=== PATIENT | male | born 2005 | race Two or more races ===

== ENCOUNTER 2025-01-15 11:07 | Emergency (ER) | payer MEDICAID, SELFPAY ==
[2025-01-15 11:31] VITALS: BP 121/84; PULSE 77; RESP 18; TEMP 36.9; O2SAT 96; BMI 25.1
--- NOTE | 2025-01-15 13:06 | XR_ITS ---
Examination: Abdomen sonogram, Limited Date and time of exam: January 15, 2025, 1341 hours INDICATION: Onset right upper abdominal pain beginning 2 days ago Technique: Real-time lawrence scale transabdominal sonographic images of the upper abdomen obtained. Findings: Contracted gallbladder, no gallstones, gallbladder wall 0.4 cm no edema Common bile duct 0.3 cm Pancreatic head 2.5 cm Liver 16.1 cm smooth contour no focal liver lesions Normal hepatopetal portal venous flow Patent IVC IMPRESSION: Repeat the gallbladder portion of the study with fasting
--- NOTE | 2025-01-15 13:06 | EKG_ITS ---
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
--- NOTE | 2025-01-15 13:07 | PD.EDABDPN ---
ED Abdominal Pain RME/HPI General Chief Complaint: Abdominal Pain Stated complaint: RUQ PAIN SINCE LAST NIGHT WITH NAUSEA Time seen by provider: 01/15/25 12:43 Arrival date/time: 01/15/25 11:07 19-year-old male patient with no past medical history, came in for evaluation regarding right upper quadrant pain. Onset of symptoms for the last 5 days, and has on and off right upper quadrant pain, described as dull ache, severity moderate. Patient denies any nausea no vomiting no diarrhea no. Patient no fever. Pain does not radiate. Denies any alcohol abuse. Denies any drug abuse. Denies any abdomen surgery. Family history of gallstone. Related Data Previous Rx's ?Medication ?Instructions ?Recorded famotidine 40 mg tablet (Pepcid) 40 mg PO BID #20 tabs 01/15/25 Allergies Allergy/AdvReac Type Severity Reaction Status Date / Time No Known Allergies Allergy Verified 01/15/25 11:09 Review of Systems Review of Systems Narrative Review of Systems: Review of system reviewed and within normal limits except mentioned in HPI ED Exam Narrative Physical exam: VITAL SIGNS: Reviewed. GENERAL APPEARANCE: Alert and interactive, follows commands, no acute distress, HEAD AND FACE: Non-traumatic. ENT: PERRL, pink conjunctivitis, eyelid no trauma, Mucous membrane moist. NECK: Supple, nontender, no nuchal rigidity. CHEST: No tenderness, no crepitus, no paradoxical movement, no retractions. LUNGS: Clear, well ventilated, symmetric, no rales, no wheezing, no ronchi, no stridor, good breath sounds bilaterally. HEART: Regular rate, regular rhythm, no murmur, no gallops. ABDOMEN: Soft, positive bowel sounds, nondistended, no guarding, right upper quadrant tenderness, no rebound, no masses, RECTAL: Deferred. GENITAL: Deferred. NEUROLOGICAL: Gross motor function intact sensory function intact, Appropriate for age. MUSCULOSKELETAL: low back nontender, full range of motion. EXTREMITIES: Nontender, full range of motion. SKIN: Color pink, dry, no rash, no lacerations, no abrasions, no contusions. LYMPHATICS: Deferred. Course Quality Measures none Orders Category Date Time Status EKG (ED ONLY) *Do not use* NOW Care 01/15/25 13:06 Completed EKG (ED Only) Stat Exams 01/15/25 13:06 Draft US gall bladder Stat Exams 01/15/25 13:06 Completed CBC Stat Lab 01/15/25 13:13 Completed Comprehensive Metabolic Panel Stat Lab 01/15/25 13:13 Completed Lipase Stat Lab 01/15/25 13:13 Completed Prothrombin Time with INR Stat Lab 01/15/25 13:13 Completed UA, C/S IF [Urinalysis, C/S if Indicated] Stat Lab 01/15/25 13:52 Completed Ketorolac Inj [Toradol Inj] Med 01/15/25 13:05 Discontinued 30 mg IM X1 ONE Vital Signs Vital signs: Vital Signs Temperature 98.4 F 01/15/25 11:31 Pulse Rate 77 01/15/25 11:31 Respiratory Rate 18 01/15/25 11:31 Blood Pressure 121/84 01/15/25 11:31 Pulse Oximetry (%) 96 01/15/25 11:31 Oxygen Delivery Method Room Air 01/15/25 11:31 Abdominal Pain [facility] Narrative MDM Narrative:: 27-year-old male patient with no past medical history, came in for evaluation regarding right upper quadrant pain. Onset of symptoms for the last 5 days, and has on and off right upper quadrant pain, described as dull ache, severity moderate. Patient denies any nausea no vomiting no diarrhea no. Patient no fever. Pain does not radiate. Denies any alcohol abuse. Denies any drug abuse. Denies any abdomen surgery. Family history of gallstone. Patient workup today all came back normal including ultrasound of gallbladder. Patient will be sent home on Pepcid. Patient stable for discharge home I did not notice any metabolic or pathologic abnormality today. Patient data External records reviewed:: None Clinical information provided by:: patient and family Social determinants that could affect healthcare access:: none Patient has the following chronic illnesses:: None How is presenting disease/condition affected by chronic disease/condition?: no chronic disease Evaluation data The following diagnostics were reviewed and interpreted by me:: lab results and radiology exam(s) Lab and/or radiology exams considered but not ordered:: None Interpretation Summary: See MDM Medications / Prescriptions Medications or Prescriptions considered but not ordered:: None Medication administrations:: Medication Administration History Discontinued Medications Ketorolac Tromethamine (Ketorolac Inj 30 Mg/Ml Vial) 30 mg IM X1 ONE Stop: 01/15/25 13:06 Last Admin: 01/15/25 13:13 Dose: 30 mg Documented By: Toradol IM Consultations Consultation(s) initiated? (list below): No Diagnosis Differential diagnosis abdominal pain: abdominal pain, gastroenteritis, pancreatitis and other (Biliary colic, gastritis) Most likely diagnosis given after review of the tests above:: Abdominal pain, Admission Indicated Admission indicated?: not indicated Admission Request Was there a request for admission?: No Disposition Plan Disposition Plan: Discharge Discharge Attestation Discharge Attestation: The patient and all family members were given an opportunity to ask questions and understood the discharge instructions. Discharge instructions specifically effects, indications for sooner follow up or return to the emergency department, and the expected course of current diagnosis. Patient condition: Stable Discharge Plan Plan Patient Disposition: HOME (Self Care) Discharge Disposition comment: Stable Prescriptions/Referrals Prescriptions/Med Rec: New famotidine [Pepcid] 40 mg tablet 40 mg PO BID Qty: 20 0RF Problem List Clinical Impression: Abdominal pain Patient/Caregiver Discharge Instructions Discharge Activity: activity as tolerated Education Materials: Abdominal Pain Additional Instructions: Thank you for the opportunity for serving you today. You are stable for discharged . You are advised to: Follow-up with your PCP in 1 to 2 days Return to ED for worsening of symptoms Increase oral fluids Take medication as prescribed Print Language: Djiboutian Stand Alone Forms: Kate Award Info., Patient Portal Info Letter
[2025-01-15] MEDS: KETOROLAC INJ 30 MG/ML VIAL IM (13:13)
[2025-01-15 13:58] LABS: Basophils # (Auto) 0.1 Thou/mm3 (0.0-0.2); Basophils % (Auto) 1 % (0-2.5); Eosinophils # (Auto) 0.2 Thou/mm3 (0.0-0.5); Eosinophils % (Auto) 2 % (0-10); Hematocrit 50.8 % (41.0-53.0); Hemoglobin 17.1 g/dL (13.5-16.0); Immature Granulocytes Auto 0.05 Thou/mm3 (0.00-0.00); Lymphocytes # (Auto) 2.0 Thou/mm3 (1.0-4.8); Lymphocytes % (Auto) 24 % (10-50); Mean Corpuscular HGB Conc 33.7 g/dl (31.0-37.0); Mean Corpuscular Hemoglobin 32.2 pg (25.0-35.0); Mean Corpuscular Volume 96 fL (80-100); Monocytes # (Auto) 1.0 Thou/mm3 (0.0-0.8); Monocytes % (Auto) 13 % (0-12); Neutrophils # (Auto) 4.9 Thou/mm3 (1.8-7.7); Neutrophils % (Auto) 60 % (37-80); Nucleated Red Blood Cell # 0.00 Thou/mm3 (0.00-0.00); Nucleated Red Blood Cell % 0 /100 WBC (0); Platelet Count 275 Thou/mm3 (140-440); RDW Standard Deviation 44.1 fL (35.1-43.9); Red Blood Count 5.31 Miln/mm3 (4.50-5.90); White Blood Count 8.2 Thou/mm3 (4.5-11.0)
[2025-01-15 14:05] LABS: Collection Type, Urine Clean Catch; Squamous Epithelial Cell,Urine 0 /hpf (0-5); WBC,Urine 0 /hpf (0-5)
[2025-01-15 14:06] LABS: INR 1.0 (0.9-1.3); Prothrombin Time 11.0 Seconds (9.0-12.2)
[2025-01-15 14:10] LABS: Alanine Aminotransferase 14 U/L (10-49); Albumin, Serum 5.4 gm/dL (3.5-5.0); Albumin/Globulin Ratio 2.3 (1.2-2.2); Alkaline Phosphatase 76 U/L (46-116); Anion Gap 9 (7-16); Aspartate Amino Transferase 17 U/L (0-34); BUN/Creatinine Ratio 8 Ratio (12-20); Bilirubin,Total 0.9 mg/dL (0.3-1.2); Blood Urea Nitrogen 8 mg/dL (9-23); Calcium 10.4 mg/dL (8.3-10.6); Calcium (Corrected) 10.4 mg/dL (8.5-10.1); Carbon Dioxide 29.7 mMol/L (20.0-31.0); Chloride 103 mMol/L (98-107); Creatinine (Component) 1.0 mg/dL (0.6-1.3); Estimated Creatinine Clearance 121.7 mL/min (>60); Globulin 2.4 gm/dL (2.3-3.5); Glucose 67 mg/dL (74-106); Lipase 39 U/L (12-53); Osmolality,Calculated 279 (275-295); Potassium 4.3 mMol/L (3.4-5.1); Sodium 142 mMol/L (136-145); Total Protein 7.8 gm/dL (5.7-8.2); eGFR > 60 See Note
[2025-01-15 14:12] LABS: Bilirubin,Urine Negative (Negative); Blood,Urine Negative (Negative); Clarity,Urine Clear (Clear/Hazy); Color,Urine Yellow (Lt Yel-Yel); Culture Indicated,Urine Not Indicated; Glucose, Urine Negative (Negative); Ketones,Urine Negative (Negative); Leukocyte Esterase,Urine Negative (Negative); Nitrite,Urine Negative (Negative); PH,Urine 6.0 (5.0-7.0); Protein,Urine 1+ (Neg - Trace); RBC,Urine 2 /hpf (0-3); Specific Gravity,Urine 1.038 (1.001-1.035); Urobilinogen,Urine 2.0 mg/dL (0.0-1.0)
== END 2025-01-15 16:05 | disposition home or self-care (01) ==
LOC: SERX 16:40
PROVIDERS: Nurse Practitioner Family; Emergency Provider Family Medicine
DX: R10.11 Right upper quadrant pain (principal); I49.8 Other specified cardiac arrhythmias
CPT/HCPCS: 36415; 76705; 80053; 81001; 83690; 85025; 85610; 93005; 96372; 99283; J1885